=== PATIENT | female | born 1950 | race African-American/Black ===

== ENCOUNTER 2016-09-24 08:36 | Outpatient (CLI) | payer MEDICARE ==
[2016-09-24 09:43] LABS: ALT (SGPT) 14 U/L (8-55); AST (SGOT) 20 U/L (5-34); Albumin 4.2 g/dL (3.4-4.8); Alkaline Phosphatase 66 U/L (40-150); Anion Gap 13 mmol/L (10-20); BUN (Urea Nitrogen) 24 mg/dL (9.8-20.1); Bilirubin, Total 0.8 mg/dL (0.2-1.2); Calc. Creatinine Clearance 0 mL/min (70-130); Carbon Dioxide 26 mmol/L (23-31); Cardiac Risk 3.2 (Less than 4.5); Chloride 102 mmol/L (98-107); Cholesterol 168 mg/dl (< 200 Desired); Estimated GFR-MDRD 70; Globulin 4.3 g/dL (2.4-3.5); Glucose 95 mg/dL (80-115); HDL Cholesterol 53 mg/dL (>60 Neg Risk); LDL Cholesterol, Calculated 106 mg/dL; Potassium 3.9 mmol/L (3.5-5.1); Protein, Total 8.5 g/dL (6.0-8.3); Sodium 137 mmol/L (136-145); Triglycerides 45 mg/dL (Less than 150)
[2016-09-24 09:49] LABS: #Basophils 0.1 thou/uL (0.0-0.2); #Eosinphils 0.2 thou/uL (0.0-0.7); #Monocytes 0.6 thou/uL (0.11-0.59); #Neutrophils 3.2 thou/uL (1.40-6.50); %Basophils 1.3 % (0.0-1.0); %Eosinophils 2.6 % (0.0-10.0); %Lymphocytes 34.1 % (21.0-51.0); %Monocytes 9.2 % (0.0-10.0); %Neutrophils 52.8 % (42.0-75.0); Hemoglobin 13.3 g/dL (12.0-16.0); Mean Corpuscular HGB CONC 33.6 g/dL (32.0-36.0); Mean Corpuscular Hemoglobin 28.7 pg (27.0-31.0); Mean Corpuscular Volume 85.5 fl (81.0-99.0); Mean Platelet Volume 5.9 fL (7.4-10.4); Platelet Count 245 thou/uL (130-400); RBC Distribution Width 12.4 % (11.5-14.5); Red Blood Cell (RBC) Count 4.62 mill/uL (4.20-5.40)
[2016-09-24 10:07] LABS: Free T4 (Free Thyroxine) 0.98 ng/dL (0.70-1.48)
== END 2016-09-24 08:37 | disposition home or self-care (01) ==
LOC: NAV LAB 08:36
PROVIDERS: ATTEND Family Medicine
DX: E78.5 Hyperlipidemia, unspecified (principal); E79.0 Hyperuricemia without signs of inflammatory arthritis and tophaceous disease; I10 Essential (primary) hypertension
CPT/HCPCS: 36415; 80053; 80061; 84439; 84443; 84550; 85025

== ENCOUNTER 2016-10-26 20:45 | Emergency (ER) | payer MEDICARE ==
[2016-10-26] MEDS ORDERED: Acetaminophen/Codeine 30-300mg Tablet ONE (21:57)
--- NOTE | 2016-10-26 22:32 | RAD ---
LEFT SHOULDER THREE VIEW 10/26/16 HISTORY: Tripped at home and fell. COMPARISON: None. FINDINGS: There is a fracture through the left humeral neck which was nondisplaced extending to the lesser and greater tuberosities. There also appears to be a fracture of the inferior margin of the glenoid. There is mild cortical irregularity of the distal clavicle at the acromioclavicular joint. IMPRESSION: 1. Minimally displaced humeral neck fracture extending to the greater and lesser tuberosities. 2. Other large osteophyte or nondisplaced fracture of the inferior glenoid. 3. Large subacromial spur. 4. Mild cortical irregularity distal clavicle at the acromioclavicular joint may represent a no ndisplaced fracture. POS: INA
== END 2016-10-26 22:10 | disposition home or self-care (01) ==
LOC: NAV ERS 20:45
DX: S42.255A Nondisplaced fracture of greater tuberosity of left humerus, initial encounter for closed fracture (principal); S42.265A Nondisplaced fracture of lesser tuberosity of left humerus, initial encounter for closed fracture; I10 Essential (primary) hypertension; E78.5 Hyperlipidemia, unspecified; Z79.2 Long term (current) use of antibiotics; Z79.82 Long term (current) use of aspirin; Z79.899 Other long term (current) drug therapy; W01.0XXA Fall on same level from slipping, tripping and stumbling without subsequent striking against object, initial encounter

== ENCOUNTER 2018-02-13 08:32 | Outpatient (CLI) | payer MEDICARE ==
--- NOTE | 2018-02-13 09:57 | RAD ---
RIGHT KNEE FOUR VIEWS: History: Right knee pain, osteoarthritis. FINDINGS: There are degenerative changes in the right knee joint, most common in the medial tibiofemoral compar tment. No fracture or dislocation or bony destruction is seen. There is fullness in the supraclavicul ar pouch suspicious for joint effusion. IMPRESSION: Right knee osteoarthritis. POS: OFF
== END 2018-02-13 08:33 | disposition home or self-care (01) ==
LOC: NAV RAD 08:32
PROVIDERS: ATTEND Family Medicine
DX: M17.0 Bilateral primary osteoarthritis of knee (principal)

== ENCOUNTER 2023-11-05 12:45 | Emergency (ER) | payer MEDICARE, OTHER ==
[2023-11-05] MEDS ORDERED: Penicillin V Potassium 250 MG TAB ONE (13:25)
[2023-11-05] MEDS ORDERED: Acetaminophen 500 MG TAB ONE (13:25)
== END 2023-11-05 13:39 | disposition home or self-care (01) ==
LOC: NAV ERS 12:45
DX: K04.4 Acute apical periodontitis of pulpal origin (principal); R59.9 Enlarged lymph nodes, unspecified; E78.00 Pure hypercholesterolemia, unspecified; I10 Essential (primary) hypertension; Z79.899 Other long term (current) drug therapy
CPT/HCPCS: 99282